=== PATIENT | female | born 1935 | race Caucasian/White ===

== ENCOUNTER 2017-11-10 10:10 | Day surgery (SDC) | payer MEDICARE, OTHER ==
[2017-11-09 10:53] LABS: HEMATOCRIT 40.1 % (36.0-48.0); HEMOGLOBIN 13.3 g/dL (12-16); MCH 31.3 pg (26.0-34.0); MCHC 33.2 g/dL (31.0-37.0); MCV 94.4 fL (80.0-100.0); MEAN PLATELET VOLUME 9.7 fL (7.4-10.4); RBC 4.25 10x6/uL (4.00-5.40); RDW 12.9 % (11.5-14.5)
[~2017-11-10] VITALS: Ht 152.4 cm; Wt 55.3 kg
--- NOTE | ~2017-11-10 | OP ---
PATIENT NAME: SHELDON MCCALLUM MEDICAL RECORD: [id number] :35 LOCATION:[facility] ADMISSION DATE: SURGEON: SANJANA MISTRY MD DATE OF OPERATION: 11/10/2017 PREOPERATIVE DIAGNOSIS: Lumbar spinal stenosis with foraminal stenosis, L4-L5, right. POSTOPERATIVE DIAGNOSIS: Lumbar spinal stenosis with foraminal stenosis, L4-L5, right. PROCEDURES: Lumbar laminectomy, medial facetectomy, and foraminotomy L4-L5 right with METRx retractor. SURGEON: Sanjana Mistry MD DESCRIPTION AND TECHNIQUE: After induction of general endotracheal anesthesia, the patient was rolled prone on a Urbano frame. Lumbar spine was prepped and draped in the usual sterile fashion. Fluoroscopic x-ray and spinal needle localized at the L4-L5 interspace on the right side. A stab incision was created with #11 blade. Series of dilators used to advance the METRx retractor within the L4-L5 interspace on the right side. Level was confirmed with fluoroscopic x-ray. A microscope and Midas Walter drill were used to perform laminotomy, hemilaminectomy, medial facetectomy, and foraminotomy at L4-L5 on the right. Hypertrophied ligamentum flavum was removed with Cloward rongeurs. This relieved the pressure on the L5 nerve root on the right. This was traversed around the pedicle. Dissection took place superiorly from that interspace. The L4 nerve root was also decompressed well within the foramen. Meticulous hemostasis was maintained throughout the wound. The wound was irrigated with copious amounts of Ancef irrigant solution. The fascia was closed with 2-0 Vicryl suture, the subdermal layer was closed with 3-0 Vicryl suture. The skin was reapproximated with Steri-Strips and benzoin. A sterile dressing was applied to the wound. The patient was awakened in good condition and taken to the recovery. All counts were reported as correct. Estimated blood loss was minimal. TRANSINT:[id number] Voice Confirmation ID: [id number] DOCUMENT ID: [id number] SANJANA MISTRY MD at 1428 CC: [id number] DICTATION DATE: 12/04/17 0544 [facility]: 12/04/17 1225 [facility] 11/10/17 [place] [id number] [place] [address]
[~2017-11-10 10:10] MED LIST: CELEBREX 100 M100 MG PO; LISINOPRIL2.5 MG PO; SYNTHROID75 MCG PO
[2017-11-10] MEDS ORDERED: ULTRAM50 MG PO (10:27)
[2017-11-10] MEDS ORDERED: IBUPROFEN400 MG PO (10:27)
[2017-11-10 10:30] VITALS: BP 142/57; Ht 152.4 cm; Wt 55.3 kg
== END 2017-11-10 16:50 | disposition home or self-care (01) ==
LOC: D.OPS 10:10 → D.PAN 12:00 → D.OPS 16:50
PROVIDERS: Anesthesiology
DX: M48.061 Spinal stenosis, lumbar region without neurogenic claudication (principal); M54.16 Radiculopathy, lumbar region; I10 Essential (primary) hypertension; E03.9 Hypothyroidism, unspecified; J44.9 Chronic obstructive pulmonary disease, unspecified; Z01.812 Encounter for preprocedural laboratory examination

== ENCOUNTER → 2017-11-15 07:55 | Outpatient (CLI) | payer MEDICARE, OTHER ==
[2017-11-10 10:30] VITALS: BMI 23.8
[~2017-11-15 07:55] MED LIST changes: +IBUPROFEN400 MG PO; +ULTRAM50 MG PO
== END | disposition home or self-care (01) ==
LOC: D.MRI 07:55
DX: M54.16 Radiculopathy, lumbar region (principal)

== ENCOUNTER → 2017-12-21 09:25 | Outpatient (CLI) | payer MEDICARE, OTHER ==
[2017-11-10 10:30] VITALS: BMI 23.8
== END | disposition home or self-care (01) ==
LOC: D.MRI 09:25
DX: M54.16 Radiculopathy, lumbar region (principal)